=== PATIENT | female | born 1960 | race Caucasian/White ===

== ENCOUNTER 2019-08-30 16:31 | Emergency (ER) | payer OTHER ==
[~2019-08-30] VITALS: Ht 165.1 cm; Wt 122.5 kg
[2019-08-30] MEDS ORDERED: LEVO-T100 MCG PO (16:48)
[2019-08-30] MEDS ORDERED: NORCO 5-325 TA1 EAC1 PO (17:30)
[2019-08-30] MEDS ORDERED: NABUMETONE 750750 M1 PO (17:30)
[2019-08-30] MEDS ORDERED: NYSTATIN 100,0015 G1 TOP (17:30)
[2019-08-30] MEDS ORDERED: MEDROLDOSEPACK PO (17:30)
[2019-08-30 17:57] VITALS: BP 157/68
== END 2019-08-30 17:58 | disposition home or self-care (01) ==
LOC: M.ERS 16:31
DX: M54.31 Sciatica, right side (principal); B37.9 Candidiasis, unspecified; E03.9 Hypothyroidism, unspecified; Z88.0 Allergy status to penicillin

== ENCOUNTER 2021-04-26 05:58 | Observation (INO) | payer OTHER ==
[~2021-04-26] VITALS: Ht 162.6 cm; Wt 127.0 kg
[~2021-04-26 05:58] MED LIST: LEVO-T100 MCG PO; MEDROLDOSEPACK PO; NABUMETONE 750750 M1 PO; NORCO 5-325 TA1 EAC1 PO; NYSTATIN 100,0015 G1 TOP
[2021-04-26 06:14] VITALS: BP 165/84
[2021-04-26 06:24] LABS: ABSOLUTE BASOPHILS 0.1 thou/uL (0.0-0.2); ABSOLUTE EOSINOPHILS 0.1 thou/uL (0.0-0.7); ABSOLUTE LYMPHOCYTES 1.9 thou/uL (0.8-5.3); ABSOLUTE MONOCYTES 0.3 thou/uL (0.0-1.2); ABSOLUTE NEUTROPHILS 5.8 thou/uL (1.6-8.1); BASOPHILS 0.9 %; EOSINOPHILS 0.8 %; HEMOGLOBIN 13.4 gm/dL (12.0-15.0); LYMPHOCYTES 23.2 %; MCH 31.3 pg (26.0-34.0); MCHC 34.4 g/dL (28.0-37.0); MCV 91.2 fL (80.0-100.0); MONOCYTES 3.8 %; NUCLEATED RBCS 0 /100WBC; PLATELET COUNT* 260 thou/uL (150-400); POLYS 71.3 %; RBC 4.27 mil/uL (4.20-5.00); RDW-CV 16.8 % (10.5-14.5); WBC 8.1 thou/uL (4.0-11.0)
[2021-04-26 06:33] LABS: CALCIUM 8.7 mg/dL (8.5-10.1); CREATININE 1.1 mg/dL (0.6-1.3)
[2021-04-26 06:38] LABS: ALBUMIN 3.7 g/dL (3.4-5.0); TOTAL BILIRUBIN 0.5 mg/dL (<0.1-1.0); TOTAL PROTEIN 6.9 g/dL (6.4-8.2)
[2021-04-26 06:40] LABS: POTASSIUM 2.5 mmol/L (3.5-5.1)
[2021-04-26 08:31] VITALS: BP 172/82
[2021-04-26 12:05] VITALS: BP 150/71
--- NOTE | 2021-04-26 15:43 | EKG ---
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: LETY : 1960 Requested By: Faith Henriquez Order Number: [id number] MD: Jr Kenney Measurements Intervals [place] Rate: 62 P: 44 PA: 169 QRS: 42 QRSD: 117 T: 234 QT: 574 QTc: 583 Interpretive Statements Sinus rhythm Nonspecific intraventricular conduction delay Low voltage, precordial leads Abnormal T, consider ischemia, diffuse leads No previous ECG available for comparison Electronically Signed On 04-26-2021 15:43:12 CDT by Jr Kenney [email or web address] <ELECTRONICALLY SIGNED> By: Jr Kenney MD, [facility] 04/26/21 1543 9 Jr Kenney MD, [facility] /EPI
--- NOTE | 2021-04-26 17:26 | NUR ---
PT.ADMITTED TO ROOM AROUND 0930, REPORT RECEIVED FROM HECTOR WRIGHT, ER. AOX4,VSS,DENIES PAIN, CALL LIGHT AND PERSONAL BELONGINGS PLACED WITHIN REACH. ADMISSION INTERVENTIONS COMPLETED. PT. TO BE TRANSFERED TO [place] DUE TO R NECK MASS.
[2021-04-26 17:41] VITALS: BP 123/68
--- NOTE | 2021-04-26 18:47 | NUR ---
REPORT GIVEN TO [facility] [place] AND EMT. PT LEFT UNIT IN STABLE CONDITION.
--- NOTE | 2021-04-27 08:56 | CON ---
[address] [address] CONSULTATION Name: SUPRIYA TEJADA Room: [address] Rosy Myrick#: [id number] Admission: 04/26/21 Attend Phys: Judith Kim MD Discharge: 04/26/21 Date of : 62 Report #: [id number] THIS REPORT FOR: cc: Isabell Littlejohn,Jr Yeung MD [facility] ~ DATE OF CONSULTATION: 04/26/2021 CARDIOLOGY CONSULT INDICATION: Chest pain. HISTORY OF PRESENT ILLNESS: The patient is a 61-year-old white female with no prior cardiac history. She presented to the Emergency Room with complaints of intermittent midsternal chest discomfort occurring at least daily over the past couple of weeks. She describes the pain as lasting 5-10 minutes. The pain is not associated with exertion. She has no radiation of the discomfort. There is no associated diaphoresis or shortness of breath. She has hypothyroidism. She ran out of her medications 2 months ago. She is presently hypothyroid and has resumed replacement therapy. She has hypokalemia with a potassium of 2.5. EKG in the setting shows changes consistent with hypokalemia. She has been replaced. PAST MEDICAL HISTORY: Hypothyroidism. FAMILY HISTORY: Noncontributory. SOCIAL HISTORY: The patient smokes cigarettes. She does not drink alcohol. ALLERGIES: PENICILLIN. HOME MEDICATIONS: None. PHYSICAL EXAMINATION: VITAL SIGNS: Blood pressure 150/71, pulse 49 and regular. GENERAL: This is a pleasant lady in no distress. Mood and affect blunted. HEENT: Head is normocephalic, atraumatic. Extraocular muscles intact. Mucous membranes are moist. NECK: Shows no jugular venous distention. CHEST: Reveals clear lung roque without wheezes or rales. CARDIAC: Reveals a bradycardic rhythm that is regular. I do not appreciate gallop or murmur. ABDOMEN: Reveals normal bowel sounds. Abdomen is soft, [place] [address] CONSULTATION Name: SUPRIYA TEJADA Room: [address] Elen#: [id number] Admission: 04/26/21 Attend Phys: Judith Kim MD Discharge: 04/26/21 Date of : 62 Report #: [id number] EXTREMITIES: Shows no significant edema. LABORATORY DATA: A 12-lead EKG shows sinus rhythm with T-wave inversion diffusely. Troponins are unremarkable. IMPRESSION AND RECOMMENDATIONS: 1. Chest pain, somewhat atypical. An echocardiogram has been ordered. I would recommend stress testing either as an inpatient or outpatient as further evaluation. No further treatment at this time. 2. Hypokalemia. Continue replacement of potassium. We will repeat EKG once potassium is adequately replaced. 3. Hypothyroidism, on replacement therapy per hospitalist. 4. Abnormal EKG, likely due to hypokalemia. I do not see anything concerning for acute coronary syndrome. <ELECTRONICALLY SIGNED> By: Jr Kenney MD, FACC 04/27/21 0856 [id number] Kenney MD, FACC /nt
== END 2021-04-26 18:30 | disposition short-term general hospital (02) ==
LOC: M.ERS 05:58 → M.TBA-ER 07:09 → M.2W 09:05
PROVIDERS: Personal Emergency Response Attendant; ADMIT Internal Medicine; ATTEND Internal Medicine
DX: R59.0 Localized enlarged lymph nodes (principal); E03.9 Hypothyroidism, unspecified; R49.0 Dysphonia; Z20.822 Contact with and (suspected) exposure to COVID-19; R07.89 Other chest pain; F17.210 Nicotine dependence, cigarettes, uncomplicated; Z88.0 Allergy status to penicillin; Z79.899 Other long term (current) drug therapy; Z91.14 Patient's other noncompliance with medication regimen